=== PATIENT | male | born 1975 | race Caucasian/White ===

== ENCOUNTER 2024-04-17 14:06 | Outpatient (CLI) | payer BC | END 2024-04-17 14:07 | disposition home or self-care (01) | LOC: SCSRAD 14:06 | PROVIDERS: ATTEND Nurse Practitioner Family | DX: S99.912A Unspecified injury of left ankle, initial encounter (principal) ==

== ENCOUNTER 2024-05-13 08:56 | Outpatient (CLI) | payer BC | END 2024-05-13 08:57 | disposition home or self-care (01) | LOC: SCSMRI 08:56 | PROVIDERS: ATTEND Physician Assistant | DX: M79.672 Pain in left foot (principal); R93.89 Abnormal findings on diagnostic imaging of other specified body structures; S92.002A Unspecified fracture of left calcaneus, initial encounter for closed fracture; S90.32XA Contusion of left foot, initial encounter ==